=== PATIENT | female | born 1965 | race Caucasian/White ===

== ENCOUNTER 2017-12-04 17:39 | Emergency (ER) | payer MEDICAID ==
[~2017-12-04] VITALS: Ht 165.1 cm; Wt 60.3 kg
[2017-12-04 17:48] VITALS: Ht 165.1 cm; Wt 60.3 kg
[2017-12-04 19:05] VITALS: BP 151/86
== END 2017-12-04 19:05 | disposition home or self-care (01) ==
LOC: EDSEX 17:39 → ED 17:39
DX: S20.212A Contusion of left front wall of thorax, initial encounter (principal); Z88.8 Allergy status to other drugs, medicaments and biological substances; W22.8XXA Striking against or struck by other objects, initial encounter; Y93.89 Activity, other specified; Y92.89 Other specified places as the place of occurrence of the external cause; Y99.8 Other external cause status
CPT/HCPCS: J1885; Q0092